=== PATIENT | male | born 1960 | race Caucasian/White ===

== ENCOUNTER → 2017-10-27 | Outpatient (CLI) | payer MEDICARE ==
[~2017-10-27] MED LIST: ASPI-496 PO; ASPI325T17 PO; BAYER PO; FENO134C PO; GABA300C10 PO; LISI5TAB7 PO; METF10002 PO; OXYC5CAP2 PO; SULF1TAB24 PO; TRAM50TA2 PO
== END | disposition home or self-care (01) ==
LOC: RAD 16:26
PROVIDERS: ATTEND Urology
DX: I83.892 Varicose veins of left lower extremity with other complications (principal); S90.02XA Contusion of left ankle, initial encounter; X58.XXXA Exposure to other specified factors, initial encounter; Y93.89 Activity, other specified; Y92.89 Other specified places as the place of occurrence of the external cause; Y99.8 Other external cause status

== ENCOUNTER 2018-02-17 11:20 | Emergency (ER) | payer MEDICARE ==
[~2018-02-17] VITALS: Ht 180.3 cm; Wt 144.2 kg
[2018-02-17] MEDS ORDERED: CHOLESTEROL MED PO (12:10)
[2018-02-17 12:28] LABS: BASOPHILS % (AUTO) 0 % (0-1); EOSINOPHILS # (AUTO) 0.08 x10^3/uL (0-0.4); EOSINOPHILS % (AUTO) 1 % (1-7); LYMPHOCYTES # (AUTO) 0.82 x10^3/uL (1-3.4); LYMPHOCYTES % (AUTO) 8 % (22-44); MD NO; MEAN CORPUSCULAR HEMOGLOBIN 32.7 pg (27.5-34.5); MEAN CORPUSCULAR HGB CONC 34.5 g/dL (33.2-36.2); MEAN CORPUSCULAR VOLUME 94.8 fL (81-97); MEAN PLATELET VOLUME 10.3 fL (7.4-10.4); MONOCYTES # (AUTO) 0.68 x10^3/uL (0.2-0.8); MONOCYTES % (AUTO) 6 % (2-9); NEUTROPHILS # (AUTO) 9.45 x10^3/uL (1.8-6.8); NEUTROPHILS % (AUTO) 86 % (42-75); PLATELET COUNT 209 x10^3/uL (130-400); RED BLOOD COUNT 4.28 x10^6/uL (4.38-5.82); RED CELL DISTRIBUTION WIDTH 12.4 % (9.4-14.8)
[2018-02-17] MEDS ORDERED: SODIUM CHLORIDE FLUSH 10ML SYR IVF ONE (12:30)
[2018-02-17 12:37] LABS: ALANINE AMINOTRANSFERASE 33 U/L (12-78); ANION GAP 8 mmol/L (5-15); CALCIUM 8.7 mg/dL (8.5-10.1); CHLORIDE 105 mmol/L (98-107); CREATININE 1.11 mg/dL (0.7-1.3)
[2018-02-17 12:38] LABS: MICROSCOPIC NOT IND
[2018-02-17 12:39] LABS: ALKALINE PHOSPHATASE 41 U/L (45-117); BILIRUBIN,TOTAL 0.7 mg/dL (0.2-1.0); TOTAL PROTEIN 7.4 g/dL (6.4-8.2)
[2018-02-17 12:42] LABS: CULTURE INDICATED? NO
[2018-02-17] MEDS ORDERED: LIDOCAINE-MPF 2% ,5ML ONE (13:16)
[2018-02-17] MEDS ORDERED: LIDOCAINE-MPF 1%, 5ML INFIL ONE (13:30)
[2018-02-17 13:37] VITALS: BP 155/69
[2018-02-17] MEDS ORDERED: KETOROLAC 30 MG/1 ML ONE (14:16)
[2018-02-17] MEDS ORDERED: MORPHINE SULFATE 4 MG/ML, 1ML ONE (14:17)
[2018-02-17] MEDS ORDERED: ONDANSETRON 2MG/ML, 2ML ONE (14:17)
[2018-02-17] MEDS ORDERED: ONDANSETRON 2MG/ML, 2ML IVPush ONE (14:30)
[2018-02-17] MEDS ORDERED: KETOROLAC 30 MG/1 ML IVPush ONE (14:30)
[2018-02-17] MEDS ORDERED: MORPHINE SULFATE 4 MG/ML, 1ML IVPush ONE (14:30)
== END 2018-02-17 15:09 | disposition home or self-care (01) ==
LOC: ED 14:45
DX: L02.211 Cutaneous abscess of abdominal wall (principal); N13.2 Hydronephrosis with renal and ureteral calculous obstruction; I10 Essential (primary) hypertension; E78.00 Pure hypercholesterolemia, unspecified; E11.9 Type 2 diabetes mellitus without complications; Z87.442 Personal history of urinary calculi
CPT/HCPCS: 10060; 36415; 74176; 80053; 81003; 85025; 96374; 96375; 99285; J1885; J2405

== ENCOUNTER → 2018-04-02 | Outpatient (CLI) | payer MEDICARE ==
[~2018-04-02] MED LIST changes: +CHOLESTEROL MED PO; +FISH1CAP PO
[2018-04-02 15:28] LABS: ALANINE AMINOTRANSFERASE 45 U/L (12-78); ANION GAP 10 mmol/L (5-15); CALCIUM 9.2 mg/dL (8.5-10.1); CHLORIDE 109 mmol/L (98-107); CREATININE 1.18 mg/dL (0.7-1.3)
[2018-04-02 15:31] LABS: ALKALINE PHOSPHATASE 49 U/L (45-117); BILIRUBIN,TOTAL 0.4 mg/dL (0.2-1.0); TOTAL PROTEIN 7.7 g/dL (6.4-8.2)
== END | disposition home or self-care (01) ==
LOC: STAR 14:13
PROVIDERS: ATTEND Internal Medicine Gastroenterology
DX: Z12.11 Encounter for screening for malignant neoplasm of colon (principal); I10 Essential (primary) hypertension; E78.00 Pure hypercholesterolemia, unspecified; E11.9 Type 2 diabetes mellitus without complications
CPT/HCPCS: 36415; 80053; 93005

== ENCOUNTER 2018-06-19 09:38 | Emergency (ER) | payer MEDICARE ==
[~2018-06-19] VITALS: Ht 177.8 cm; Wt 142.2 kg
[2018-06-19] MEDS ORDERED: KETOROLAC 30 MG/1 ML ONE (09:59)
[2018-06-19] MEDS ORDERED: MORPHINE SULFATE 4 MG/ML, 1ML ONE (09:59)
[2018-06-19] MEDS ORDERED: MORPHINE SULFATE 4 MG/ML, 1ML IVPush PRN (10:00)
[2018-06-19] MEDS ORDERED: KETOROLAC 30 MG/1 ML IVPush ONE (10:00)
[2018-06-19] MEDS ORDERED: SODIUM CHLORIDE FLUSH 10ML SYR IVF ONE (10:00)
[2018-06-19 10:25] LABS: BASOPHILS # (AUTO) 0.02 x10^3/uL (0-0.1); BASOPHILS % (AUTO) 0 % (0-1); EOSINOPHILS # (AUTO) 0.07 x10^3/uL (0-0.4); EOSINOPHILS % (AUTO) 1 % (1-7); LYMPHOCYTES # (AUTO) 0.73 x10^3/uL (1-3.4); LYMPHOCYTES % (AUTO) 6 % (22-44); MD NO; MEAN CORPUSCULAR HEMOGLOBIN 32.8 pg (27.5-34.5); MEAN CORPUSCULAR HGB CONC 33.9 g/dL (33.2-36.2); MEAN CORPUSCULAR VOLUME 96.6 fL (81-97); MEAN PLATELET VOLUME 9.8 fL (7.4-10.4); MONOCYTES # (AUTO) 0.66 x10^3/uL (0.2-0.8); MONOCYTES % (AUTO) 6 % (2-9); NEUTROPHILS # (AUTO) 10.27 x10^3/uL (1.8-6.8); NEUTROPHILS % (AUTO) 87 % (42-75); PLATELET COUNT 222 x10^3/uL (130-400); RED BLOOD COUNT 4.71 x10^6/uL (4.38-5.82); RED CELL DISTRIBUTION WIDTH 12.6 % (9.4-14.8)
[2018-06-19 10:35] LABS: ALANINE AMINOTRANSFERASE 41 U/L (12-78); ALBUMIN 4.2 g/dL (3.4-5.0); ANION GAP 8 mmol/L (5-15); CHLORIDE 106 mmol/L (98-107); CREATININE 1.12 mg/dL (0.7-1.3)
[2018-06-19 10:37] LABS: ALKALINE PHOSPHATASE 44 U/L (45-117); BILIRUBIN,TOTAL 0.6 mg/dL (0.2-1.0); TOTAL PROTEIN 7.8 g/dL (6.4-8.2)
[2018-06-19] MEDS ORDERED: TAMSULOSIN 0.4 MG CAP.ER.24H PO ONE (11:00)
[2018-06-19 11:06] LABS: CULTURE INDICATED? NO; MICROSCOPIC NOT IND
[2018-06-19 12:07] VITALS: BP 144/69
== END 2018-06-19 12:11 | disposition home or self-care (01) ==
LOC: ED 12:06
DX: N13.2 Hydronephrosis with renal and ureteral calculous obstruction (principal); E78.00 Pure hypercholesterolemia, unspecified; I10 Essential (primary) hypertension; E11.9 Type 2 diabetes mellitus without complications
CPT/HCPCS: 36415; 74176; 80053; 81003; 83690; 85025; 96374; 96375; 99285; J1885

== ENCOUNTER 2018-10-17 14:58 | Emergency (ER) | payer MEDICARE ==
[~2018-10-17] VITALS: Ht 177.8 cm; Wt 141.6 kg
[2018-10-17 15:04] VITALS: BP 132/81
--- NOTE | 2018-10-17 15:26 | NUR ---
PT PRESENTED TO ED WITH MID EPIGASTRIC X WOUND X 10 DAYS. PT A&OX4. PT PLACED IN ROOM AND PLACED ON BP AND CONT. PULSE OXIMETER. ASSESSMENT COMPLETED.
[2018-10-17] MEDS ORDERED: SULFAMETH./TRIMETHOPRIM DS 800MG/160MG TABLET PO ONE (15:30)
[2018-10-17] MEDS ORDERED: KETOROLAC 30 MG/1 ML IM ONE (15:30)
[2018-10-17] MEDS ORDERED: CEPHALEXIN 500 MG CAPSULE PO ONE (15:30)
[2018-10-17 15:41] LABS: BASOPHILS # (AUTO) 0.03 x10^3/uL (0-0.1); BASOPHILS % (AUTO) 1 % (0-1); EOSINOPHILS # (AUTO) 0.14 x10^3/uL (0-0.4); EOSINOPHILS % (AUTO) 2 % (1-7); LYMPHOCYTES % (AUTO) 20 % (22-44); MD NO; MEAN CORPUSCULAR HEMOGLOBIN 32.9 pg (27.5-34.5); MEAN CORPUSCULAR HGB CONC 34.1 g/dL (33.2-36.2); MEAN CORPUSCULAR VOLUME 96.5 fL (81-97); MEAN PLATELET VOLUME 9.5 fL (7.4-10.4); MONOCYTES # (AUTO) 0.49 x10^3/uL (0.2-0.8); MONOCYTES % (AUTO) 7 % (2-9); NEUTROPHILS # (AUTO) 4.63 x10^3/uL (1.8-6.8); NEUTROPHILS % (AUTO) 70 % (42-75); PLATELET COUNT 248 x10^3/uL (130-400); RED CELL DISTRIBUTION WIDTH 12.9 % (9.4-14.8)
[2018-10-17] MEDS ORDERED: LIDOCAINE-MPF 1%, 5ML ONE (15:41)
[2018-10-17 15:49] LABS: ALANINE AMINOTRANSFERASE 44 U/L (12-78); ALBUMIN 3.9 g/dL (3.4-5.0); ANION GAP 10 mmol/L (5-15); CALCIUM 8.6 mg/dL (8.5-10.1); CHLORIDE 109 mmol/L (98-107); CREATININE 0.88 mg/dL (0.7-1.3)
[2018-10-17 15:52] LABS: ALKALINE PHOSPHATASE 47 U/L (45-117); BILIRUBIN,TOTAL 0.3 mg/dL (0.2-1.0); TOTAL PROTEIN 7.4 g/dL (6.4-8.2)
[2018-10-17] MEDS ORDERED: KETOROLAC 30 MG/1 ML ONE (16:01)
[2018-10-17] MEDS ORDERED: SULFAMETH./TRIMETHOPRIM DS 800MG/160MG TABLET ONE (16:01)
[2018-10-17] MEDS ORDERED: CEPHALEXIN 500 MG CAPSULE ONE (16:01)
== END 2018-10-17 16:36 | disposition home or self-care (01) ==
LOC: ED 15:35
DX: L02.211 Cutaneous abscess of abdominal wall (principal); I10 Essential (primary) hypertension; E11.9 Type 2 diabetes mellitus without complications; E78.5 Hyperlipidemia, unspecified
CPT/HCPCS: 10060; 36415; 80053; 85025; 87070; 87205; 99283

== ENCOUNTER → 2021-02-20 | Outpatient (CLI) | payer MEDICARE ==
[~2021-02-20] MED LIST changes: +ATOR20TA37 PO; +CHOL100012 PO; +EMPA25TA PO; +SULF-23 PO; -SULF1TAB24 PO
[2021-02-20 09:31] LABS: ALBUMIN 3.9 g/dL (3.4-5.0); ANION GAP 8 mmol/L (5-15); CHLORIDE 107 mmol/L (98-107)
[2021-02-20 09:35] LABS: ALANINE AMINOTRANSFERASE 38 U/L (12-78); ALKALINE PHOSPHATASE 42 U/L (45-117); BILIRUBIN,TOTAL 0.6 mg/dL (0.2-1.0); CREATININE 0.88 mg/dL (0.7-1.3); TOTAL PROTEIN 7.6 g/dL (6.4-8.2)
== END | disposition home or self-care (01) ==
LOC: STAR 07:42
PROVIDERS: ATTEND Surgery
DX: Z01.818 Encounter for other preprocedural examination (principal); I44.7 Left bundle-branch block, unspecified; Z20.822 Contact with and (suspected) exposure to COVID-19
CPT/HCPCS: 36415; 80053; 93005; U0003; U0005

== ENCOUNTER 2021-02-26 11:43 | Day surgery (SDC) | payer MEDICARE ==
[~2021-02-26] VITALS: Ht 177.8 cm; Wt 149.5 kg
[~2021-02-26 11:43] MED LIST changes: +BUPIVACAINE/PF 0.5% ONE; +EPINEPHRINE 1 MG/ML, 1ML ONE
[2021-02-26 12:09] VITALS: BP 121/76
[2021-02-26] MEDS ORDERED: LACTATED RINGERS 1,000 ML IV SCH (12:30)
[2021-02-26] MEDS ORDERED: CHLORHEXIDINE 15 ML UDC PO ONE (12:30)
[2021-02-26] MEDS ORDERED: MIDAZOLAM 1 MG/ML, 2ML ONE (12:51)
[2021-02-26] MEDS ORDERED: FENTANYL PF 250 MCG/5ML ONE (12:51)
[2021-02-26] MEDS ORDERED: CEFAZOLIN 1,000 MG ONE ×3 (12:52→13:22)
[2021-02-26] MEDS ORDERED: PROPOFOL 10 MG/ML, 20ML ONE (12:52)
[2021-02-26] MEDS ORDERED: SUCCINYLCHOLINE 20 MG/ML, 10ML ONE (13:21)
[2021-02-26] MEDS ORDERED: ROCURONIUM 10 MG/ML,10ML ONE (13:21)
[2021-02-26] MEDS ORDERED: ACETAMINOPHEN 325 MG TABLET PO PRN (13:30)
[2021-02-26] MEDS ORDERED: morphine SULFATE 10 MG/ML, 1ML IVPush PRN (13:30)
[2021-02-26] MEDS ORDERED: hydrALAzine 20 MG/ML, 1ML IV PRN (13:30)
[2021-02-26] MEDS ORDERED: LABETALOL 5MG/ML, 20ML IV PRN (13:30)
[2021-02-26] MEDS ORDERED: ONDANSETRON 2MG/ML, 2ML IVPush PRN (13:30)
[2021-02-26] MEDS ORDERED: FENTANYL PF 100 MCG/2ML IV PRN (13:30)
[2021-02-26] MEDS ORDERED: MEPERIDINE/PF 25MG/0.5ML IVPush PRN (13:30)
[2021-02-26] MEDS ORDERED: HYDROmorphone 1 MG/ML, 1ML INJ IVPush PRN (13:30)
[2021-02-26] MEDS ORDERED: NEOSPORIN OINT, 15GM ONE (13:46)
[2021-02-26] MEDS ORDERED: ACETAMINOPHEN 650 MG/20.3 ML UDC ONE (14:16)
[2021-02-26] MEDS ORDERED: OXYcodone 5 MG/5 ML ORAL.SOL UDC ONE (14:17)
[2021-02-26] MEDS: OXYcodone 5 MG/5 ML ORAL.SOL UDC PO PRN ×2 (14:18→15:10)
[2021-02-26] MEDS ORDERED: HYDR-2214 PO (14:22)
== END 2021-02-26 15:45 | disposition home or self-care (01) ==
LOC: OUT 11:43
PROVIDERS: ATTEND Surgery
DX: R22.0 Localized swelling, mass and lump, head (principal); L72.8 Other follicular cysts of the skin and subcutaneous tissue; E11.9 Type 2 diabetes mellitus without complications; I10 Essential (primary) hypertension; E78.5 Hyperlipidemia, unspecified; Z79.84 Long term (current) use of oral hypoglycemic drugs; Z79.899 Other long term (current) drug therapy; Z87.891 Personal history of nicotine dependence; Z82.49 Family history of ischemic heart disease and other diseases of the circulatory system; Z83.3 Family history of diabetes mellitus
CPT/HCPCS: 11423; 12031; 82962; 88304; J0171; J0330; J0690; J2250; J2704; J3010; J7120; 88305

== ENCOUNTER 2021-03-12 13:18 | Outpatient (CLI) | payer MEDICARE ==
[~2021-03-12 13:18] MED LIST changes: -BUPIVACAINE/PF 0.5% ONE; -EPINEPHRINE 1 MG/ML, 1ML ONE; +HYDR-2214 PO
== END 2021-03-12 23:59 | disposition home or self-care (01) ==
LOC: WOUND 13:18
PROVIDERS: ATTEND Internal Medicine
DX: T81.31XD Disruption of external operation (surgical) wound, not elsewhere classified, subsequent encounter (principal); S01.00XD Unspecified open wound of scalp, subsequent encounter; E78.5 Hyperlipidemia, unspecified; E11.22 Type 2 diabetes mellitus with diabetic chronic kidney disease; I12.9 Hypertensive chronic kidney disease with stage 1 through stage 4 chronic kidney disease, or unspecified chronic kidney disease; N18.9 Chronic kidney disease, unspecified; G89.29 Other chronic pain; Z87.891 Personal history of nicotine dependence; X58.XXXD Exposure to other specified factors, subsequent encounter; Y83.8 Other surgical procedures as the cause of abnormal reaction of the patient, or of later complication, without mention of misadventure at the time of the procedure
CPT/HCPCS: G0463

== ENCOUNTER 2021-03-26 08:48 | Outpatient (CLI) | payer MEDICARE | END 2021-03-26 23:59 | disposition home or self-care (01) | LOC: WOUND 08:48 | PROVIDERS: ATTEND Internal Medicine | DX: T81.31XD Disruption of external operation (surgical) wound, not elsewhere classified, subsequent encounter (principal); S01.00XD Unspecified open wound of scalp, subsequent encounter; E78.5 Hyperlipidemia, unspecified; I12.9 Hypertensive chronic kidney disease with stage 1 through stage 4 chronic kidney disease, or unspecified chronic kidney disease; E11.22 Type 2 diabetes mellitus with diabetic chronic kidney disease; N18.9 Chronic kidney disease, unspecified; Z87.891 Personal history of nicotine dependence; X58.XXXD Exposure to other specified factors, subsequent encounter; Y83.8 Other surgical procedures as the cause of abnormal reaction of the patient, or of later complication, without mention of misadventure at the time of the procedure | CPT/HCPCS: G0463 ==